=== PATIENT | male | born 1950 | race Caucasian/White ===

== ENCOUNTER 2016-12-02 18:27 | Emergency (ER) | payer OTHER, BC ==
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
[~2016-12-02 18:27] MED LIST: ADVICOR 5001 BOTTL1 PO; AMBIEN10 MG PO; ASPIR-TRIN325 MG PO; ASPIRIN PO; ASPIRIN325 M1 PO; CENTRUM SILVER PO; CENTRUM SILVER1 EAC2 PO; DARVOCET-N 1001 TA1 PO; DIOVAN PO; ESCITALOPRAM OX10 MG PO; EXFORGE 5-160 M1 TAB PO; FLEXERIL10 M1 PO; LEXAPRO PO; LOPID600 MG PO; LORAZEPAM1 MG PO; LORTAB 101 TAB 10/5 PO; LOVASTATIN20 M1 PO; NORVASC PO; PRILOSEC20 MG PO; TRICOR PO; TRICOR134 MG PO; VICODIN 5/1 TAB 5/50 PO; VOLTAREN50 MG PO
== END 2016-12-02 20:04 | disposition home or self-care (01) ==
LOC: SED 18:27
DX: S13.9XXA Sprain of joints and ligaments of unspecified parts of neck, initial encounter (principal); S46.911A Strain of unspecified muscle, fascia and tendon at shoulder and upper arm level, right arm, initial encounter; S80.01XA Contusion of right knee, initial encounter; Z79.899 Other long term (current) drug therapy; I10 Essential (primary) hypertension; V43.62XA Car passenger injured in collision with other type car in traffic accident, initial encounter
CPT/HCPCS: 73030; 73502; 73562; 99284